=== PATIENT | male | born 1960 | race Caucasian/White ===

== ENCOUNTER 2016-11-12 19:13 | Emergency (ER) | payer OTHER ==
--- NOTE | ~2016-11-12 | EKG ---
PATIENT: DOC ANTONIO UNIT #: [id number] Ventricular Rate: 83 BPM Atrial Rate: 83 BPM P-R Interval: 184 ms QRS Duration: 82 ms Q-T Interval: 366 ms QTC Calculation(Bezet): 430 ms P [place]: 34 degrees Calculated R [place]: 31 degrees Calculated T [place]: 44 degrees Diagnosis Line: Normal sinus rhythm Diagnosis Line: Possible Left atrial enlargement Diagnosis Line: Borderline ECG Diagnosis Line: When compared with ECG of 06-JUL-2015 00:03, Diagnosis Line: T wave amplitude has increased in Anterior leads Diagnosis Line: Confirmed by FLORENCIO GUERRERO MD ([id number]) on Diagnosis Line: 11/14/2016 8:45:51 AM INTERPRETING MD: ISAIAS
--- NOTE | ~2016-11-12 | CR72 ---
[facility] A Service of [facility] RADIOLOGY TEXT RESULTS PATIENT: DOC ANTONIO LOCATION: [facility] : 64 UNIT #: [id number] AGE: [address]: Ben Baez MD SEX: M ORDER DR: [id number] [facility] [address] [place], [place] [address] [id number] E MR#: [id number] Acc #: [id number] NAME: DOC ANTONIO. : 1960 SEX: M STUDY DATE/TIME: 11/12/2016 19:37 UNIT: [facility] ROOM: STUDY DESCRIPTION: CR Chest Single View Portable Attending Physician: Ben Baez M.D. Ordering Physician: Ben Baez M.D. Primary Care Physician: No Primary Care Physician MEDICAL IMAGING REPORT This report is preliminary unless electronic signature is present EXAM Portable chest HISTORY Chest pain. Heart palpitations, left side pain since yesterday. FINDINGS The cardiac size and pulmonary vascularity are normal. No infiltrates or effusions. Mild mid-right thoracic curve. IMPRESSION No acute findings. Dictated by... Saran Veliz M.D. THIS IS AN ELECTRONICALLY VERIFIED REPORT Saran Veliz M.D. at 11/12/2016 11:19 PM ASHA/abigail TD: 11/12/2016 23:10 JOB #: [id number] MEDICAL IMAGING REPORT Page 1 of 1 COPY
[2016-11-12 17:55] LABS: BASOPHIL% 0.5 % (0-2.5); EOSINOPHIL# 0.2 X10e3 (0-0.7); EOSINOPHIL% 1.9 % (0.0-7.0); HEMATOCRIT 47.1 % (38.0-50.0); HEMOGLOBIN 15.5 gm/dL (13.0-16.0); LYMPHOCYTE# 1.8 X10e3 (1.0-3.5); MEAN CELL VOLUME 87.1 FL (83-96); MEAN CORPUSCULAR HEMOGLOBIN 28.7 PG (28-34); MEAN PLATELET VOLUME 7.9 FL (6.5-11.5); MONOCYTE# 0.8 X10e3 (0-1.0); MONOCYTE% 8.9 % (3.0-12.0); NEUTROPHIL# 6.5 X10e3 (1.5-7.1); NEUTROPHIL% 69.7 % (40-75); PLATELET COUNT 268 X10e3 (140-420); RED BLOOD COUNT 5.41 X10e (3.90-5.60); RED CELL DISTRIBUTION WIDTH 13.2 % (11.0-15.5); WHITE BLOOD COUNT 9.3 X10e3 (4.0-10.5)
[2016-11-12 17:56] LABS: DIFF IND NO
[2016-11-12 18:16] LABS: ALBUMIN SERUM 4.8 g/dL (3.5-5.0); BILIRUBIN, DIRECT 0.1 mg/dL (0.0-0.2); BILIRUBIN,INDIRECT 0.2 mg/dL (0.0-0.9); BILIRUBIN,TOTAL 0.3 mg/dL (0.2-2.0); CALCIUM SERUM 9.6 mg/dL (8.4-10.2); GLOM FILT RATE Estimated 85.6 mL/min (>60); PROTEIN TOTAL SERUM 7.1 g/dL (6.0-8.3)
[2016-11-12 19:06] LABS: POC - CKMB <1.0 ng/mL (0.0-7.9); POC - TROPONIN <0.05 ng/mL (<=0.05)
[~2016-11-12 19:13] MED LIST: KEFLEX500 MG PO; NO MEDICATIONS
[2016-11-12 20:10] LABS: POC - CKMB <1.0 ng/mL (0.0-7.9); POC - TROPONIN <0.05 ng/mL (<=0.05)
== END 2016-11-12 20:40 | disposition home or self-care (01) ==
LOC: CED 19:13
PROVIDERS: Emergency Medicine
DX: R07.89 Other chest pain (principal); R00.2 Palpitations; Z90.89 Acquired absence of other organs
CPT/HCPCS: 36415; 71010; 80048; 80076; 82553; 83735; 84484; 85025; 93005; 99284

== ENCOUNTER → 2016-12-22 | Outpatient (CLI) | payer OTHER | END | disposition home or self-care (01) | LOC: CECH 13:24 | DX: E78.5 Hyperlipidemia, unspecified (principal) | CPT/HCPCS: 93306 ==

== ENCOUNTER 2017-02-08 17:21 | Emergency (ER) | payer OTHER ==
[~2017-02-08] VITALS: Ht 175.3 cm; Wt 77.1 kg
--- NOTE | ~2017-02-08 | CR262 ---
[facility] A Service of [facility] RADIOLOGY TEXT RESULTS PATIENT: DOC ANTONIO LOCATION: [place] : 64 UNIT #: [id number] AGE: [address]: Pau Bonilla APRN SEX: M ORDER DR: [id number] [facility] [address] [place], [place] [address] [id number] E MR#: [id number] Acc #: [id number] NAME: DOC ANTONIO : 1960 SEX: M STUDY DATE/TIME: 02/08/2017 18:15 UNIT: [facility] ROOM: STUDY DESCRIPTION: CR Toe 2 Views Great Lt Attending Physician: Pau Bonilla A.P.R.N. Ordering Physician: Rolan Emmanuel M.D. Primary Care Physician: Primary Care Physician No MEDICAL IMAGING REPORT This report is preliminary unless electronic signature is present EXAM Great toe left 2 views HISTORY Kicked the wall 02/08/2017 now has pain and swelling left great toe. COMMENT Two views of the left great toe reviewed. There is deformity at the nail bed suggesting that the nail is partially avulsed. There is minimal irregularity of the cortex of the distal aspect of the distal phalanx at the dorsum which could be some subtle nondisplaced fracture related to the nail avulsion. No other possible fracture or dislocation seen. IMPRESSION It appears the nail is partially avulsed and there is subtle irregularity of the cortex of the distal end of the distal phalanx dorsally in the nail bed possibly representing nondisplaced fracture. No displaced fracture, dislocation or radiopaque foreign body is seen. Dictated by... Jany Zuleta M.D. THIS IS AN ELECTRONICALLY VERIFIED REPORT Jany Zuleta M.D. at 02/09/2017 10:58 AM DANN/hola TD: 02/09/2017 07:25 JOB #: [id number] [facility] A Service of [facility] RADIOLOGY TEXT RESULTS PATIENT: DOC ANTONIO LOCATION: [facility] #: [id number] : 64 UNIT #: [id number] AGE: [address]: Pau Bonilla APRN SEX: M ORDER DR: MEDICAL IMAGING REPORT Page 1 of 1 COPY
== END 2017-02-08 19:05 | disposition home or self-care (01) ==
LOC: CED 17:21 → CFTX 17:21
DX: S91.202A Unspecified open wound of left great toe with damage to nail, initial encounter (principal); R03.0 Elevated blood-pressure reading, without diagnosis of hypertension; R00.2 Palpitations; W22.01XA Walked into wall, initial encounter; Y92.009 Unspecified place in unspecified non-institutional (private) residence as the place of occurrence of the external cause
CPT/HCPCS: 11730; 29405; 73660; 90471; 90715; 99283